=== PATIENT | male | born 1985 | race Caucasian/White ===

== ENCOUNTER 2024-10-22 20:24 | Observation (INO) | payer OTHER, SELFPAY ==
[2024-10-22 20:25] VITALS: BP 181/117; PULSE 99; RESP 18; TEMP 37.2; O2SAT 95; BMI 32.3
--- NOTE | 2024-10-22 21:10 | ED_ITS ---
HPI - Abdominal Pain 2 General: Chief Complaint: Abdominal Pain Stated Complaint: ABD Pain Time Seen by Provider: 10/22/24 20:59 History of Present Illness: 39-year-old male with 3 episodes of sign ificant abdominal pain, epigastric and right upper quadrant, since Wednesday or so. He had another 1 tonight. Pain did not go away despite Rolaids and Mylanta. He was placed on omeprazole on with some transient improvement, but has not seemed to help today. No known fever, although he has not measured. No vomiting currently. No diarrhea. In fact he may be somewhat constipated he says. No urinary symptoms. He states that he had gallbladder problems in the past, but not frequent ones. These episodes are the most frequent he has had. Related Data Home Medications ?Medication ?Instructions ?Recorded ?Confirmed No Known Home Medications 10/22/2409/25 Allergies Allergy/AdvReac Type Severity Reaction Status Date / Time No Known Allergies Allergy Unverified 12/07/22 08:00 [facility] ED 2 PFSH: Surgical History Hx of inguinal hernia repair Right - as a young child Family History Father Hypertension Grandfather CAD (coronary artery disease) A fib and CHF Grandmother Cancer Renal cell carcinoma Social History (Updated 10/22/24 @ 23:54 by Anneliese Soto MD) Smoking and tobacco/nicotine status: never used tobacco/nicotine Alcohol intake: never Substance/Drug Use: former Former substance use details: Marijuana use back in college days. 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 Physical Exam 2 Const: COMMON NORMALS: no acute distress GENERAL APPEARANCE: cooperative; not ill appearing and not frail appearing HENMT: COMMON NORMALS: normocephalic, atraumatic and Normal external nose present HEAD & SCALP: normocephalic and atraumatic FACE & SINUS: normal facial exam and face symmetric NOSE: Normal external nose present Eye: COMMON NORMALS: Equal, round and reactive pupils present and EOMs intact bilaterally PUPIL: Yes Equal, round and reactive pupils present Neck/C-Spine: GENERAL: Yes trachea midline Chest: CHEST: Yes Symmetrical chest wall rise Resp: COMMON NORMALS: normal respiratory effort, No retractions, No use of accessory muscles and clear to auscultation bilaterally AUSCULTATION: clear to auscultation bilaterally Cardio: COMMON NORMALS: regular rate and regular rhythm RATE: regular rate RHYTHM: regular rhythm GI: COMMON NORMALS: Normal to inspection, nondistended, normoactive bowel sounds present and Soft to palpation PALPATION: Yes Soft to palpation and Yes Tenderness to palpation present (GI) (Epigastric) Details: RUQ OTHER: No pain on jump test Extremity: COMMON NORMALS: no pedal edema Neuro: MARQUIS COMA SCALE: document GCS findings [place] coma scale eye opening: Spontaneous Marquis coma scale verbal response: Orientated Marquis coma scale motor response: Obey commands Marquis coma scale total score: 15 S ENSORY EXAM: Yes extremities (intact) Psych: COMMON NORMALS: speech normal SPEECH: Yes normal speech Skin: COMMON NORMALS: no rashes or lesions noted GENERAL SKIN EXAM: no rashes or lesions noted Course 2 Vital Signs: Vital signs: Vital Signs Temperature 98.9 F 10/22/24 20:25 Pulse Rate 67 10/22/24 23:38 Respiratory Rate 16 10/22/24 23:38 Blood Pressure 114/70 10/22/24 23:38 Pulse Oximetry 96 10/22/24 23:38 Oxygen Delivery Me thod Room Air 10/22/24 23:38 MDM - Abdominal Pain Medical Decision Making Significant right upper quadrant and epigastric pain in a patient with prior history of right upper quadrant pain, but episodes have been more frequent this week. He is hypertensive on arrival. He is somewhat short of breath at times, as he says it hurts to take a deep breath. White blood cell count is 11.4. Hemoglobin 15. Platelet count 402. CRP is only 5. Lipase is 42. Liver enzymes are normal. Bilirubin is 0.3. CT and gallbladder ultrasound show findings compatible with early acute cholecystitis, given sludge, stones, and mildly thickened wall. Common bile duct is normal. The patient's sodium is 158. This is concerning. Cause essentially not known at this point. He is given a liter bolus here. Plan is to admit for hyponatremia and a acute cholecystitis. Recheck sodium in the morning. Consult surgery in the morning. Zosyn in the meantime. Patient and hospitalist both agree. Lab Data 10/22/24 21:03 10/22/24 21:03 Labs/Radiology: Radiology Impressions Abdomen/Pelvis CT 10/22/24 21:10 IMPRESSION: 1. Findings raising the question of symptomatic cholelithiasis versus early acute cholecystitis in the proper clinical setting. Consider correlation with biliary labs and right upper quadrant ultrasound. Gallbladder Ultrasound 10/22/24 21:10 IMPRESSION: 1. Findings compatible with early acute cholecystitis in the proper clinical setting. Laboratory Results WBC 11.43 10^3/uL (3.29-11.43) 10/22/24 21:03 RBC 5.48 10^6/uL (3.85-5.65) 10/22/24 21:03 Hgb 15.20 g/dL (11.27-16.99) 10/22/24 21:03 Hct 45.1 % (37-53) 10/22/24 21:03 MCV 82.3 fl (82-101) 10/22/24 21:03 MCH 27.7 pg (27-33) 10/22/24 21:03 MCHC 33.7 g/dL (30-55) 10/22/24 21:03 RDW 12.3 % (12.1-15.1) 10/22/24 21:03 Plt Count 402 10^3/cmm (157-399) H 10/22/24 21:03 MPV 9.7 fL (7.4-10.4) 10/22/24 21:03 Neut % (Auto) 61.0 % 10/22/24 21:03 Lymph % (Auto) 29.8 % 10/22/24 21:03 [place] % (Auto) 7.7 % 10/22/24 21:03 Eos % (Auto) 1.0 % 10/22/24 21:03 Baso % (Auto) 0.3 % 10/22/24 21:03 Neut # (Auto) 6.96 10^3/uL (1.8-7.7) 10/22/24 21:03 Lymph # (Auto) 3.4 10^3/uL (0.8-4.8) 10/22/24 21:03 [place] # (Auto) 0.9 10^3/uL (0.2-0.9) 10/22/24 21:03 Eos # (Auto) 0.1 10^3/uL (0.0-0.8) 10/22/24 21:03 Baso # (Auto) 0.0 10^3/uL (0.0-0.1) 10/22/24 21:03 Nucleated RBC % (auto) 0 % 10/22/24 21:03 Nucleated RBCs # 0.0 /100WBC 10/22/24 21:03 PT 12.60 SECONDS (12.1-14.9) 10/22/24 21:08 INR 0.88 (0.8-1.2) 10/22/24 21:08 APTT 24.0 SECONDS (23.9-36.7) 10/22/24 21:08 Sodium 158 mmol/L (136-145) H 10/22/24 21:03 Potassium 4.6 mmol/L (3.5-5.1) 10/22/24 21:03 Chloride 112 mmol/L (98-107) H 10/22/24 21:03 Carbon Dioxide 27 mmol/L (22-29) 10/22/24 21:03 Anion Gap 23.6 (5-19) H 10/22/24 21:03 BUN 12 mg/dL (6-20) 10/22/24 21:03 Creatinine 0.8 mg/dL (0.7-1.2) 10/22/24 21:03 GFR Calculation 108.8 mL/min (90-130) 10/22/24 21:03 Glucose 145 mg/dL (65-115) H 10/22/24 21:03 Calculated Osmolality 328 mOsm/kg (285-295) H 10/22/24 21:03 Calcium 10.1 mg/dL (8.5-10.5) 10/22/24 21:03 Total Bilirubin 0.3 mg/dL (0.15-1.2) 10/22/24 21:03 AST 19 U/L (0-40) 10/22/24 21:03 ALT 34 U/L (0-41) 10/22/24 21:03 Alkaline Phosphatase 94 U/L (40-130) 10/22/24 21:03 Troponin T Baseline < 6 ng/L (0-15) 10/22/24 21:03 C-Reactive Protein 5.1 mg/L (0.0-4.9) H 10/22/24 21:03 Total Protein 7.7 g/dL (6.6-8.7) 10/22/24 21:03 Albumin 5.3 g/dL (3.5-5.2) H 10/22/24 21:03 Globulin 2.4 g/dL (1.3-4.6) 10/22/24 21:03 Lipase 42 U/L (13-60) 10/22/24 21:03 All radiology interpretation(s) finalized by discharge Discharge Plan Discharge Patient Disposition: Admitted As Inpatient Admit Provider: Anneliese Soto Clinical Impression: Acute hypernatremia, Acute calculous cholecystitis Condition: Stable Coding Level of Care Code ED Environmental Attorney for Fern Quintana
--- NOTE | 2024-10-22 21:10 | CTR_ITS ---
PROCEDURE INFORMATION: Exam: CT Abdomen And Pelvis With Contrast Exam date and time: 10/22/2024 9:29 PM Age: 39 years old Clinical indication: Abdominal pain; Localized; Right upper quadrant (ruq); Prior surgery; Surgery date: 6+ months; Surgery type: umbilical hernia repair; C/O multiple episodes of ruq pain over the last week. TECHNIQUE: Imaging protocol: Computed tomography of the abdomen and pelvis with contrast. Radiation optimization: All CT scans at this facility use at least one of these dose optimization techniques: automated exposure control; mA and/or kV adjustment per patient size (includes targeted exams where dose is matched to clinical indication); or iterative reconstruction. Contrast material: OMNI 350; Contrast volume: 100 ml; Contrast route: INTRAVENOUS (IV); COMPARISON: No relevant prior studies available. RADIATION DOSE METRICS: Total DLP (mGy-cm): 884.7 FINDINGS: Lungs: Subsegmental bibasilar atelectasis. The visualized lung bases are otherwise grossly clear. Diaphragm: No evidence of diaphragmatic defect. Liver: Hepatic steatosis. No evidence of focal hepatic lesion. Gallbladder and biliary ducts: There is cholelithiasis with pericholecystic haziness and trace pericholecystic fluid. No intra-hepatic or extra-hepatic biliary dilatation. Pancreas: Unremarkable. Spleen: Unremarkable. Adrenal glands: Unremarkable. Kidneys and ureters: No renal parenchymal abnormality. No hydronephrosis or ureteral stone. Stomach and bowel: No evidence of bowel obstruction or perienteric inflammatory changes. Appendix: Normal appendix. Intraperitoneal space: No evidence of free air or fluid collection. Vasculature: No aneurysmal dilatation or dissection of the abdominal aorta. The celiac trunk, SMA and CRISPIN are grossly patent. No evidence of IVC thrombus. The portal vein, SMV and splenic veins are grossly patent. Lymph nodes: No adenopathy. Urinary bladder: Grossly unremarkable. Reproductive: Grossly unremarkable. Bones/joints: No evidence of acute fracture or aggressive osseous lesion. Soft tissues: No evidence of fluid collection or hematoma in the superficial soft tissues. CT/CT abdomen pelvis w con* [id number] IMPRESSION: 1. Findings raising the question of symptomatic cholelithiasis versus early acute cholecystitis in the proper clinical setting. Consider correlation with biliary labs and right upper quadrant ultrasound.
--- NOTE | 2024-10-22 21:10 | USR_ITS ---
PROCEDURE INFORMATION: Exam: US Abdomen, Limited; Right Upper Quadrant Exam date and time: 10/22/2024 10:24 PM Age: 39 years old Clinical indication: Abdominal pain; Localized; Right upper quadrant (ruq); Additional info: Ruq pain TECHNIQUE: Imaging protocol: Real time ultrasound of the abdomen with image documentation. Limited exam focused on the right upper quadrant. COMPARISON: CT abdomen pelvis w con* [id number] 10/22/2024 9:29 PM FINDINGS: Liver: Visualized hepatic parenchyma is echogenic. The liver contour is grossly smooth. Gallbladder: There is cholelithiasis with gallbladder wall thickening to 6 mm. Biliary ducts: The CBD is nondilated, measuring 4 mm. No sonographic evidence of intraductal stone. Pancreas: The pancreas is mostly obscured bowel gas. Visualized portions are grossly unremarkable. Right kidney: The right kidney is normal in echotexture and measures 10.5 cm in length. No evidence of hydronephrosis. US/US gall bladder [id number] IMPRESSION: 1. Findings compatible with early acute cholecystitis in the proper clinical setting.
[2024-10-22 21:23] LABS: Basophils % 0.3 %; Eosinophils # 0.1 10^3/uL (0.0-0.8); Hematocrit 45.1 % (37-53); Lymphocytes # 3.4 10^3/uL (0.8-4.8); Lymphocytes % 29.8 %; Mean Corpuscular HGB Conc 33.7 g/dL (30-55); Mean Corpuscular Hemoglobin 27.7 pg (27-33); Mean Corpuscular Volume 82.3 fl (82-101); Mean Platelet Volume 9.7 fL (7.4-10.4); Monocytes # 0.9 10^3/uL (0.2-0.9); Monocytes % 7.7 %; Neutrophils # 6.96 10^3/uL (1.8-7.7); Nucleated Red Blood Cells % 0 %; Platelet Count 402 10^3/cmm (157-399); Red Blood Count 5.48 10^6/uL (3.85-5.65); Red Cell Distribution Width 12.3 % (12.1-15.1); White Blood Count 11.43 10^3/uL (3.29-11.43)
--- NOTE | 2024-10-22 21:23 | ECG_ITS ---
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 Measurements Intervals [place] Rate: 79 P: 52 WV: 160 QRS: 66 QRSD: 80 T: 8 QT: 348 QTc: 400 Interpretive Statements SINUS RHYTHM WITH SINUS ARRHYTHMIA No previous ECG available for comparison Electronically Signed On 10-28-2024 18:39:52 CDT by Forrest Sabillon M.D. [id number]
[2024-10-22 21:31] LABS: Potassium 4.6 mmol/L (3.5-5.1)
[2024-10-22] MEDS: iohexol 350 mg/mL 500 mL Btl (per mL) IV (21:31)
[2024-10-22 21:37] LABS: Troponin(5th) Baseline < 6 ng/L (0-15)
[2024-10-22 21:39] LABS: Chloride 112 mmol/L (98-107); Sodium 158 mmol/L (136-145)
[2024-10-22 21:43] LABS: Alanine Aminotransferase 34 U/L (0-41); Albumin Level 5.3 g/dL (3.5-5.2); Alkaline Phosphatase 94 U/L (40-130); Anion Gap 23.6 (5-19); Aspartate Amino Transferase 19 U/L (0-40); Blood Urea Nitrogen 12 mg/dL (6-20); C Reactive Protein 5.1 mg/L (0.0-4.9); Calcium 10.1 mg/dL (8.5-10.5); Carbon Dioxide 27 mmol/L (22-29); Creatinine Clr Calc Pharmacy 151.3227; Globulin 2.4 g/dL (1.3-4.6); Glomerular Filtration Rate 108.8 mL/min (90-130); Glucose 145 mg/dL (65-115); Lipase 42 U/L (13-60); Osmolality Calculated 328 mOsm/kg (285-295); Total Bilirubin 0.3 mg/dL (0.15-1.2); Total Protein 7.7 g/dL (6.6-8.7)
[2024-10-22] MEDS: lidocaine 2% viscous 15 ML, aluminum-mag hydrox-simethicon 30 ML, sucralfate oral liq 1 GM PO (21:50)
[2024-10-22] MEDS: ondansetron 2 mg/ML SDV 2 mL 4 MG IVP (22:01)
[2024-10-22] MEDS: metoprolol tartrate 1 mg/1 mL SDV 5 mL 5 MG IVP (22:01)
[2024-10-22] MEDS: ketorolac 30 mg/mL INJ IVP (22:01)
[2024-10-22 22:07] VITALS: BP 161/105; PULSE 71; RESP 16; O2SAT 95
[2024-10-22] MEDS: sodium chloride 0.9% 1,000 ML 999 ML IV (22:29)
[2024-10-22 22:41] VITALS: BP 127/77; PULSE 69; RESP 16; O2SAT 96
--- NOTE | 2024-10-22 22:59 | P.HP_ITS ---
Providers/Chief Complaint 2 Admitting Physician: Anneliese Soto Primary Care Provider: Jeremias To MD Chief Complaint: ABD Pain History of Present Illness Patient's was in the room while the patient was being seen. Arie Talley is a 39 year old male with no medical hx, who presents to the ED on 10/22/2024 with complaints of progressively worsening abdominal pain that began on the night of 10/21/2024. The patient states that starting Tuesday 10/17, he started to experience sharp abdominal pains that started about 11:30pm and lasted for 5 hours, such that he did not sleep until 3:30am in the morning. Last night, 10/21, he had experienced the same abdominal pain starting at 11:30pm and did not sleep until 7:30am this morning. Today, he started to experience the abdominal pain around 4pm this afternoon, after eating a cheese burger, and given that he did not know when the abdominal pain would resolve, he decided to present to the hospital. In the last 2 years, he has had gall bladder attacks that were 6 months to a year apart, but this sequence of abdominal pains was unusual. The pain is constant in the epigastric and LUQ and radiated to the back, but intermittent in the RUQ. He took Mylanta and Rolaids with no relief. He endorses nausea, abdominal bloating, 2 days of constipation. He denies f/c, dizziness, lightheadedness, CP, palpitations, SOB, or symptoms. In the ED, his vital signs were significant for a BP of 181/117 mmHg. His labs are significant for WBC of 11.4, hyponatremia of 158, and a negative UA. CT abdomen and pelvis was done that was concerning for cholelithiasis versus early acute cholecystitis. A right upper quadrant ultrasound was ordered that confirmed acute cholecystitis and no choledocholithiasis. He was given a ketorolac 30 mg IVP x 1, metoprolol tartrate 5 mg IVP x 1, Zofran 4 mg IVP x 1, Zosyn 3.375 g x 1, and 1 L NS x 1 prior to admission. Review of Systems 2 Const: Reports: fatigue (due to lack of sleep from the abdominal pain. ) and malaise; Denies: fever(s), chills or change in appetite Eyes: Denies: change in vision ENMT: Denies: odynophagia, ear or mastoid pain, nasal discharge or nasal congestion Card: Denies: chest pain or palpitations Resp: Denies: dyspnea, non-productive cough or wheezing GI: Reports: abdominal pain, nausea, constipation and bloating; Denies: vomiting, diarrhea, hematochezia or melena : Denies: difficulty urinating, dysuria, urinary frequency, urinary urgency or hematuria Musc: Reports: other (no myalgias); Denies: joint pain Skin/Breast: Denies: rash or new lesions Neuro: Denies: dizziness Psych: Denies: anxiety, depression, suicidal ideation or homicidal ideation Endo: Denies: cold intolerance or heat intolerance Lit/Lymph: Denies: easy bruising or easy bleeding All/Imm: Denies: food intolerance Medications/Allergies Home Medications ?Medication ?Instructions ?Recorded ?Confirmed ?Last Taken ?Type No Known Home Medications 10/22/2409/25 Unknown History Allergies Allergy/AdvReac Type Severity Reaction Status Date / Time No Known Allergies Allergy Unverified 12/07/22 08:00 PFSH Acute 2 PFSH: Surgical History Hx of inguinal hernia repair Right - as a young child Family History Father Hypertension Grandfather CAD (coronary artery disease) A fib and CHF Grandmother Cancer Renal cell carcinoma Social History (Updated 10/22/24 @ 23:54 by Anneliese Soto MD) Smoking and tobacco/nicotine status: never used tobacco/nicotine Alcohol intake: never Substance/Drug Use: former Former substance use details: Marijuana use back in college days. 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 Vitals/I&O/Wt Last Vital Signs Temp 98.9 F 10/22/24 20:25 Pulse 69 10/22/24 22:41 Resp 16 10/22/24 22:41 BP 127/77 10/22/24 22:41 Pulse Ox 96 10/22/24 22:41 O2 Del Method Room Air 10/22/24 22:41 10/22/24 10/22/24 10/22/24 06:59 14:59 22:59 Intake Total 0 / 0 Balance 0 / 0 Weight last 48 hrs Weight 102.058 kg Physical Exam 2 Const: GENERAL APPEARANCE: cooperative and comfortable O RIENTATION/CONSCIOUSNESS: Yes awake, Yes oriented to person, Yes oriented to place and Yes oriented to time HENMT: HEAD & SCALP: normocephalic and atraumatic NOSE: Normal external nose present EXTERNAL EAR: Yes external ears normal MOUTH: Normal oral and palatal mucosa present THROAT: posterior oropharynx normal Eye: CONJUNCTIVA: Yes conjunctivae normal PUPIL: Yes Equal, round and reactive pupils present EOM: No EOM abnormal Neck/C-Spine: GENERAL: Yes normal visual inspection and Yes trachea midline THYROID: Thyroid normal CAROTIDS: No bruit CERVICAL SPINE: Yes cervical ROM normal Lymph: OTHER: No cervical or supraclavicular LAD bilaterally. Resp: OTHER: CTAB, w/ no w/r/r Cardio: OTHER: RRR, no m/r/g or clicks. 2+ radial and DP as well as PT pulses GI: OTHER: BS+, Tender to palpation in the RUQ, Positive Garrett's sign. No rebound tenderness, no guarding or hepatosplenomegaly. Extremity: GENERAL: No clubbing, No cyanosis and No edema Neuro: CRANIAL NERVES: Yes CN normal except as noted COORDINATION/BALANCE: tandem gait normal and other SPEECH: speech normal SENSORY EXAM: No sensory level loss detected MOTOR EXAM: 5/5 motor strength present throughout and Normal motor muscle tone present throughout Psych: APPEARANCE: Yes grossly normal ATTITUDE: Yes calm and Yes engaged ACTIVITY/MOTOR BEHAVIOR: Yes appropriate eye contact SPEECH: Yes normal speech MOOD & AFFECT: Yes euthymic mood THOUGHT PROCESS: Normal thought process present THOUGHT CONTENT: Yes Normal thought content present A TTENTION/CONCENTRATION: Yes attention grossly intact MEMORY/COGNITION: Yes memory grossly intact Skin: GENERAL SKIN EXAM: no rashes or lesions noted Data 10/22/24 21:03 10/22/24 21:03 A&P Assessment and plan (1) Acute hypernatremia: (2) Acute calculous cholecystitis: Plan Arie Talley is a 39 year old male with no medical hx, who presents to the ED on 10/22/2024 with complaints of progressively worsening abdominal pain that began on the night of 10/21/2024. #Acute Cholecystitis: -NPO after midnight. Will consult General Surgery in the AM. -Continue Zosyn. Pain control with Dilaudid #Hypernatremia: Unclear reason. - Will start D5W at 100cc/hr and monitor Na levels. DVT ppx: Lovenox CODE STATUS: Full code PDMP PDMP Reviewed: Not Reviewed Attestations 2 Medical Necessity Statement*: The patient needs to be hospitalized for greater than 2 midnights primarily for his hypernatremia and secondarily for his acute cholecystitis requiring surgical intervention. Diagnoses Acute hypernatremia E87.0 Acute calculous cholecystitis K80.00
[2024-10-22 23:07] LABS: INR 0.88 (0.8-1.2)
[2024-10-22 23:13] VITALS: BP 141/90; PULSE 73; RESP 14; O2SAT 95
[2024-10-22] MEDS: piperacillin-tazobactam 3.375 GM in sodium chloride 0.9% (plus) 50 ML IV (23:24)
[2024-10-22 23:38] VITALS: BP 114/70; PULSE 67; RESP 16; O2SAT 96
[2024-10-23] VITALS (10 sets, daily range): BP systolic 115–149; BP diastolic 60–89; PULSE 63–99; RESP 16–19; TEMP 36.5–36.8; O2SAT 96–99; BMI 32.8
[2024-10-23 00:35] LABS: Urine Appearance Clear (CLEAR); Urine Color Yellow (Yellow)
[2024-10-23 00:36] LABS: Bilirubin Urine Neg (Negative); Blood Urine Neg (Negative); Glucose Urine UA Norm (Normal); Ketones Urine Negative (Negative); Leukocyte Esterase Urine Negative (Negative); Nitrate Urine Negative (Negative); Protein Urine Neg (Negative); Urobilinogen Urine Norm (Negative); pH Urine 6.5 (5-7)
[2024-10-23 00:38] LABS: Bacteria Urine None Seen /hpf; RBC Urine 0-2 /hpf (0-2); Squamous Epithelial Cell Urine 0-5 /hpf (0-5); WBC Urine 0-5 /hpf (0-5)
[2024-10-23] MEDS: dextrose 5% 1,000 ML 100 ML IV ×2 (01:37→10:43)
[2024-10-23] MEDS: HYDROmorphone 0.5 MG/0.5 ML INJ IVP ×4 (03:58→17:14)
--- NOTE | 2024-10-23 04:01 | ECG_ITS ---
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
[2024-10-23 05:35] LABS: Troponin 5 6HR Delta 0.00001 ng/L (0-12)
[2024-10-23] MEDS: piperacillin-tazobactam 3.375 GM in sodium chloride 0.9% (plus) 50 ML IV ×3 (06:10→22:58)
[2024-10-23 06:57] LABS: Basophils % 0.4 %; Eosinophils # 0.2 10^3/uL (0.0-0.8); Eosinophils % 1.7 %; Hematocrit 40.6 % (37-53); Lymphocytes # 3.4 10^3/uL (0.8-4.8); Mean Corpuscular HGB Conc 32.8 g/dL (30-55); Mean Corpuscular Hemoglobin 27.5 pg (27-33); Mean Corpuscular Volume 83.9 fl (82-101); Monocytes # 0.8 10^3/uL (0.2-0.9); Monocytes % 7.9 %; Neutrophils % 53.6 %; Nucleated Red Blood Cells % 0 %; Platelet Count 320 10^3/cmm (157-399); Red Blood Count 4.84 10^6/uL (3.85-5.65); Red Cell Distribution Width 12.4 % (12.1-15.1); White Blood Count 9.52 10^3/uL (3.29-11.43)
[2024-10-23 07:16] LABS: Alanine Aminotransferase 28 U/L (0-41); Albumin Level 4.2 g/dL (3.5-5.2); Alkaline Phosphatase 76 U/L (40-130); Aspartate Amino Transferase 21 U/L (0-40); Blood Urea Nitrogen 11 mg/dL (6-20); Calcium 8.8 mg/dL (8.5-10.5); Carbon Dioxide 26 mmol/L (22-29); Chloride 101 mmol/L (98-107); Creatinine Clr Calc Pharmacy 153.2697; Globulin 2.3 g/dL (1.3-4.6); Glomerular Filtration Rate 108.8 mL/min (90-130); Glucose 99 mg/dL (65-115); Osmolality Calculated 285 mOsm/kg (285-295); Sodium 138 mmol/L (136-145); Total Bilirubin 0.4 mg/dL (0.15-1.2); Total Protein 6.5 g/dL (6.6-8.7)
--- NOTE | 2024-10-23 10:05 | P.CONIM_ITS ---
Providers/Reason For Consult 2 Consulting Physician/Specialty*: General Surgery Reason for Consult*: Acute cholecystitis Attending Physician: Anneliese Soto MD Primary Care Provider: Jeremias To MD History of Present Illness History of Present Illness Arie Talley is a 39 year old male who is admitted to the hospital with hyponatremia and possible acute cholecystitis. Patient came with right upper quadrant and epigastric abdominal pain, laboratory workup showed mild elevation in the white count and hyponatremia with a sodium of 158. His CT of the abdomen shows some thickening of the gallbladder no cholecystic fluid, no ultrasound of the gallbladder first shows a stone and gallbladder thickening but no pericholecystic fluid concerning for possible early acute cholecystitis. Patient has been having ongoing pain for about 3 days and before this he has had a sporadic episode for the last 2 years. Review of Systems 2 General: Reports: 10 or more systems reviewed and unremarkable except in HPI and below Medications/Allergies Home Medications ?Medication ?Instructions ?Recorded ?Confirmed ?Last Taken ?Type No Known Home Medications 10/22/2409/25 Unknown History Allergies Allergy/AdvReac Type Severity Reaction Status Date / Time No Known Allergies Allergy Unverified 12/07/22 08:00 Current Medications Generic Name Dose Route Start Last Admin Trade Name Freq PRN Reason Stop Dose Admin Hydromorphone HCl 0.5 mg 10/23/24 03:50 10/23/24 03:58 Hydromorphone 0.5 Mg/0.5 Ml Inj IVP 0.5 mg Q4H PRN Administration MODERATE TO SEVERE PAIN Dextrose 1,000 mls @ 100 mls/hr 10/23/24 01:00 10/23/24 01:37 D5w IV 100 mls/hr .Q10H NEIL Administration Piperacillin Sod/Tazobactam 50 mls @ 12.5 mls/hr 10/23/24 07:00 10/23/24 06:10 Sod 3.375 gm/ Sodium Chloride IV 12.5 mls/hr Q8H NEIL Administration Protocol PFSH Acute 2 PFSH: Surgical History Hx of inguinal hernia repair Right - as a young child Family History Father Hypertension Grandfather CAD (coronary artery disease) A fib and CHF Grandmother Cancer Renal cell carcinoma Social History (Updated 10/22/24 @ 23:54 by Anneliese Soto MD) Smoking and tobacco/nicotine status: never used tobacco/nicotine Alcohol intake: never Substance/Drug Use: former Former substance use details: Marijuana use back in college days. 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 No Garrett sign Data 10/23/24 05:00 10/23/24 05:00 A&P Assessment and plan (1) Acute calculous cholecystitis: Plan After a complete history, physical examination and review of all available clinical data I think patient clinical presentation is consistent with possible early acute cholecystitis after several episodes of biliary colic. I have offered the patient laparoscopic cholecystectomy . All the risk and benefits of the procedure were discussed with the patient including the risks of bleeding, infection, damage to surrounding structures including liver, duodenum, colon, risk of injuring bile ducts requiring extensive surgery at higher level of care facility, risk of retained stones, bile leak, bili Salma, need for subtotal cholecystectomy, hernia and wound related complications, need to conversion to open procedure. Patient shows understanding and would like to proceed. Lap derrick will be booked for next available OR Time PDMP PDMP Reviewed: Not Reviewed Coding Level of Care Code Acute Code for g Fwd Diagnoses Acute calculous cholecystitis K80.00
--- NOTE | 2024-10-23 11:56 | P.PN_ITS ---
Subjective 2 Subjective: Feeling a little more settled this morning, belly pain is somewhat better. Still very tender in the epigastric and right upper quadrant. Bowel sounds are good. Pain is controlled. No more problems with nausea. Medications: Reviewed: Yes Vitals/I&O/Wt Last Vital Signs Temp 97.7 F 10/23/24 07:34 Pulse 77 10/23/24 07:34 Resp 18 10/23/24 07:34 BP 115/74 10/23/24 07:34 Pulse Ox 97 10/23/24 07:34 O2 Del Method Room Air 10/23/24 07:34 10/22/24 10/23/24 10/23/24 22:59 06:59 14:59 Intake Total 0 / 0 1050 / 1050 960 / 960 Balance 0 / 0 1050 / 1050 960 / 960 Weight last 48 hrs Weight 231 lb Weight 229 lb 4 oz Weight 225 lb Physical Exam 2 Narrative: General: Cooperative patient in no apparent distress. Well developed. HEENT: Normocephalic, Atraumatic. External ears normal. Nasal passages patent without drainage. MMM. Heart: RRR. Resp: LCTA. No respiratory distress, no use of accessory muscles. Abd: Soft, epigastric and right upper quadrant tenderness noted. Abdomen is nondistended. Bowel sounds are present and normal. Extremities: No edema. Skin: No rash or lesions on exposed areas. Data 10/23/24 05:00 10/23/24 05:00 A&P Assessment and plan (1) Acute hypernatremia: (2) Acute calculous cholecystitis: Plan Arie Talley is a 39 year old male with no medical hx, who presents to the ED on 10/22/2024 with complaints of progressively worsening abdominal pain that began on the night of 10/21/2024. Continue inpatient monitoring. General surgery is consulted and they have decided to take patient back for surgery this afternoon. Currently on Zosyn. His pain is well-controlled on Dilaudid. He has antiemetics available as needed. Hyponatremia has resolved as of this morning. Sodium is back to normal range. Will continue Lovenox for now for DVT prophylaxis. This may change prior to surgery. Code Status: Full IVF: D5 water, will stop for now. DVT PPx: Lovenox GI PPx: None ABx: Zosyn Diet: N.p.o. Discharge plan: Home when appropriate. PDMP PDMP Reviewed: Not Reviewed Attestations 2 Medical Necessity Statement*: The patient needs to be hospitalized for greater than 2 midnights primarily for his hypernatremia and secondarily for his acute cholecystitis requiring surgical intervention. Coding Level of Care Code Acute Code for Chg Fwd Moderate MDM includes number and complexity of problems actively addressed during encounter, amount and/or complexity of data reviewed/ordered and described risk of complication, morbidity or mortality of management as documented Diagnoses Acute hypernatremia E87.0 Acute calculous cholecystitis K80.00
[2024-10-23] MEDS: sodium chloride 0.9% 1,000 ML 75 ML IV (13:37)
--- NOTE | 2024-10-23 14:52 | PM.MISC ---
Miscellaneous Note Purpose of Documentation: Update on patient care Note: Patient is doing well, no significant abdominal pain. His lap derrick was scheduled for this afternoon but unfortunately due to schedule of nonelective cases for this evening we will not be able to obtain our time today. Since patient clinical symptoms get significantly improved I think it will be okay to wait until tomorrow morning. I discussed with the patient and family member they agree with this we will proceed to the OR tomorrow at 7 AM. We will do a full liquid diet today and n.p.o. after midnight
[2024-10-23] MEDS: ketorolac 30 mg/mL INJ IVP (19:52)
[2024-10-24] VITALS (20 sets, daily range): BP systolic 104–166; BP diastolic 64–109; PULSE 69–98; RESP 16–20; TEMP 36.2–37.1; O2SAT 92–98
[2024-10-24] MEDS: sodium chloride 0.9% 1,000 ML 75 ML IV (02:43)
--- NOTE | 2024-10-24 06:07 | W.PM.OPSUD ---
Surgery/Procedure H&P Update DATE OF PROCEDURE: October 24, 2024 DATE H&P PERFORMED: 10/23/24 H&P UPDATE INFORMATION: I have reviewed H&P completed within last 30 days, I have examined patient prior to procedure, No changes to prior documentation, Changes to prior documentation as noted here and Risks and benefits of the procedure reviewed PLANNED PROCEDURE: Operation Date: 10/24/24 07:00 Proposed Procedures p Laparoscopic Cholecystectomy(Not Applicable) - Dorian Murillo MD
[2024-10-24] MEDS: sodium chloride 0.9% 1,000 ML 30 ML IV (06:26)
[2024-10-24] MEDS: fentaNYL 50 mcg/mL INJ 2mL IVP (06:50)
[2024-10-24 06:51] LABS: Hematocrit 42.3 % (37-53)
--- NOTE | 2024-10-24 06:53 | ANES.PREANE2 ---
Pre-Anesthetic Assessment Height/Weight: Height 1.78 m Weight 104.916 kg Temp Pulse Resp BP Pulse Ox O2 Del Method 98.7 F 89 17 166/109 96 Room Air 10/24/24 06:15 10/24/24 06:15 10/24/24 06:50 10/24/24 06:15 10/24/24 06:50 10/24/24 06:15 Operation Date: 10/24/24 07:00 Proposed Procedures p Laparoscopic Cholecystectomy(Not Applicable) - Dorian Murillo MD Familial anesthetic complications: None Was Beta Magi taken within 24 hours: N/A Was Clonidine taken within 24 hours: N/A Last intake: Intake Last Liquid Date 10/23/24 Last Liquid Time 23:30 Last Solid Date 10/22/24 Social No alcohol and No tobacco Exam alert, oriented x 3, clear to auscultation bilaterally and regular rate & rhythm Airway Dentition: full Anesthetic Plan ASA status: 1 Anesthesia: General Risk of > 500 ml blood loss (7ml/kg in children): No Medications/Allergies Home Medications ?Medication ?Instructions ?Recorded ?Confirmed ?Last Taken ?Type No Known Home Medications 10/22/24 10/22/24 Unknown History Allergies Allergy/AdvReac Type Severity Reaction Status Date / Time No Known Allergies Allergy Unverified 12/07/22 08:00 Current Medications Generic Name Dose Route Start Last Admin Trade Name Dionyq PRN Reason Stop Dose Admin Fentanyl 50 mcg 10/24/24 06:11 10/24/24 06:50 Fentanyl 50 Mcg/Ml Inj 2ml IVP 50 mcg Q10M PRN Administration Preop Pain Hydromorphone HCl 0.5 mg 10/23/24 03:50 10/23/24 17:14 Hydromorphone 0.5 Mg/0.5 Ml Inj IVP 0.5 mg Q4H PRN Administration MODERATE TO SEVERE PAIN Piperacillin Sod/Tazobactam 50 mls @ 12.5 mls/hr 10/23/24 07:00 10/24/24 03:50 Sod 3.375 gm/ Sodium Chloride IV Infused Q8H NEIL Infusion Protocol Sodium Chloride 1,000 mls @ 75 mls/hr 10/23/24 13:30 10/24/24 02:43 Sodium Chloride 0.9% IV 75 mls/hr .[id number] NEIL Administration Sodium Chloride 1,000 mls @ 30 mls/hr 10/24/24 06:15 10/24/24 06:26 Sodium Chloride 0.9% IV 10/25/24 06:14 30 mls/hr .Q24H NEIL Administration Ketorolac Tromethamine 30 mg 10/23/24 13:52 10/23/24 19:52 Ketorolac 30 Mg/Ml Inj IVP 10/28/24 13:51 30 mg Q8H PRN Administration MODERATE PAIN Polyethylene Glycol 17 gm 10/23/24 09:00 10/23/24 10:47 Polyethylene Glycol 3350 Pkt 17 Gm PO Not Given DAILY NELI Senna 17.2 mg 10/23/24 09:00 10/23/24 10:47 Sennosides 8.6 Mg Tablet PO Not Given DAILY NEIL PFSH Anesthesia Surgical History Hx of inguinal hernia repair Right - as a young child Family History Father Hypertension Grandfather CAD (coronary artery disease) A fib and CHF Grandmother Cancer Renal cell carcinoma Social History (Updated 10/22/24 @ 23:54 by Anneliese Soto MD) Smoking and tobacco/nicotine status: never used tobacco/nicotine Alcohol intake: never Substance/Drug Use: former Former substance use details: Marijuana use back in college days. 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 Data Anesthesia 10/24/24 05:58 10/23/24 05:00 Short CBC 10/22/24 10/23/24 10/24/24 Range/Units 21:03 05:00 05:58 WBC 11.43 9.52 (3.29-11.43) 10^3/uL Hgb 15.20 13.30 14.20 (11.27-16.99) g/dL Hct 45.1 40.6 42.3 (37-53) % MCV 82.3 83.9 (82-101) fl Plt Count 402 H 320 (157-399) 10^3/cmm Neut % (Auto) 61.0 53.6 % Neut # (Auto) 6.96 5.10 (1.8-7.7) 10^3/uL BMP 10/22/24 10/23/24 21:03 05:00 Sodium 158 H 138 D Potassium 4.6 4.0 Chloride 112 H 101 Carbon Dioxide 27 26 BUN 12 11 Creatinine 0.8 0.8 Glucose 145 H 99 Calcium 10.1 8.8 Cardiac Enzymes 10/22/24 10/23/24 Range/Units 21:03 05:00 Troponin T Baseline < 6 (0-15) ng/L Troponin T Hi Sens 6Hr 6.00 (0-15) ng/L Troponin T Hi Sens 6Hr Delta 0.76503 (0-12) ng/L Liver Function 10/22/24 10/23/24 Range/Units 21:03 05:00 Total Bilirubin 0.3 0.4 (0.15-1.2) mg/dL AST 19 21 (0-40) U/L ALT 34 28 (0-41) U/L Alkaline Phosphatase 94 76 (40-130) U/L Albumin 5.3 H 4.2 (3.5-5.2) g/dL Urine 10/23/24 Range/Units 00:26 Urine Color Yellow (Yellow) Urine Appearance Clear (CLEAR) Urine pH 6.5 (5-7) Ur Specific [place] 1.010 (1.005-1.030) Urine Protein Neg (Negative) Urine Glucose (UA) Norm (Normal) Urine Ketones Negative (Negative) Urine Nitrate Negative (Negative) Urine Bilirubin Neg (Negative) Ur Leukocyte Esterase Negative (Negative) Urine RBC 0-2 (0-2) /hpf Urine WBC 0-5 (0-5) /hpf Coags 10/22/24 10/22/24 21:03 21:08 PT 12.60 INR 0.88 APTT 24.0 C-Reactive Protein 5.1 H Cardiac Studies: No Data to Display
[2024-10-24 07:00] LABS: INR 0.88 (0.8-1.2)
[2024-10-24 07:01] LABS: Partial Thromboplastin Time 27.5 SECONDS (23.9-36.7)
[2024-10-24 07:09] LABS: Alanine Aminotransferase 88 U/L (0-41); Albumin Level 4.5 g/dL (3.5-5.2); Alkaline Phosphatase 121 U/L (40-130); Anion Gap 16.2 (5-19); Aspartate Amino Transferase 55 U/L (0-40); Blood Urea Nitrogen 10 mg/dL (6-20); Calcium 9.4 mg/dL (8.5-10.5); Carbon Dioxide 26 mmol/L (22-29); Chloride 102 mmol/L (98-107); Globulin 2.3 g/dL (1.3-4.6); Glomerular Filtration Rate 108.8 mL/min (90-130); Glucose 92 mg/dL (65-115); Magnesium 2.4 mg/dL (1.7-2.3); Osmolality Calculated 289 mOsm/kg (285-295); Phosphorus 3.7 mg/dL (2.5-4.5); Potassium 4.2 mmol/L (3.5-5.1); Sodium 140 mmol/L (136-145); Total Bilirubin 0.7 mg/dL (0.15-1.2); Total Protein 6.8 g/dL (6.6-8.7)
[2024-10-24] MEDS: BUPivacaine 0.25% INJ 10 mL INJECTION (07:23)
[2024-10-24] MEDS: lidocaine-epi 1% 20 mL INJ INJECTION (07:23)
--- NOTE | 2024-10-24 09:39 | P.OP_ITS ---
Operative Report Date of procedure: October 24, 2024 Pre-op diagnosis: Acute cholecystitis Post-op diagnosis: Acute cholecystitis Post-op findings: There was severe inflammation on the gallbladder, the gallbladder was severely thickened and distended, require decompression to be able to grab it. There was significant inflammation of the level of the hepatocystic triangle. There was multiple stones impacted into the cystic duct. Procedure done: Laparoscopic cholecystectomy Specimens removed/disposition: Gallbladder Surgeon: Dorian Murillo MD Estimated blood loss: 20 Complications: None apparent Brief History: 39-year-old male who presented to the hospital with abdominal pain, imaging findings consistent with acute cholecystitis. After discussion of all recent benefits we proceeded to the OR for lap derrick Procedure: Patient was brought into the OR, he was placed in a supine position. General anesthesia was given. The abdomen was prepped and draped in the usual sterile fashion. A timeout was conducted. I accessed the abdomen via a 5 mm Optiview port in the left upper quadrant. Initial pneumoperitoneum was obtained and no evidence of visceral injury during entry was noted. At 12 mm trocar was placed in the supraumbilical position under direct visualization. Additional 5 mm trocars were placed in the epigastrium right upper quadrant and right flank under direct visualization. The gallbladder was extremely distended, I decompressed it with decompression needle and remove about 10 cc of thick bile before it could grasped from the fundus and retracted cephalad, I then grasped the infundibulum and retracted in the inferolateral direction exposing the hepatocystic triangle. The peritoneum anterior to the hepatocystic triangle was opened with electrocautery, I carried this opening in the medial and lateral di rection to the edges of the liver and then on the sides of the gallbladder to allow for better exposure. There was severe inflammation of the level of the hepatocystic triangle, there was multiple inflammatory Rinds and dissection was very complex. The cystic artery was anterior to the cystic duct and from that position its branch into a medial and lateral direction. With careful blunt dissection as well as electrocautery I was able to encircle the cystic duct and artery, I also elevated lower third of the gallbladder from the liver bed, thus creating a critical view of safety. The cystic duct and artery were double clipped proximally and single clipped distally and transected. The gallbladder was removed from the liver bed using electrocautery. The gallbladder was retrieved in an Endo Catch bag via the umbilical trocar site. The fascia was dilated and the skin was opened about 0.5 cm more in order to accommodate the size of the gallbladder. the liver bed and clips were inspected the area was hemostatic, there was no evidence of bile leak the clips appeared to be in good position. The liver bed was irrigated and suctioned. The medical trocar was removed and umbilical trocar site was closed with a 0 Vicryl Kris-Anne suture passer under direct visualization. The epigastrium right upper quadrant right flank trocars were removed under direct visualization, the left upper quadrant trocar was used to evacuate the pneumoperitoneum and subsequently removed. Local anesthesia was infiltrated. Hemostasis was achieved from the trocar sites. The wounds were closed in layers using #3-0 Vicryl for the subcutaneous tissue #4 Monocryl for the skin. At the end of the procedure all counts were correct, the patient tolerated well the procedure was transferred to the PACU in stable condition.
--- NOTE | 2024-10-24 10:50 | ANE.PACU2 ---
Inpatient post-anesthesia follow up: Airway intact: Yes Vital signs: Temperature 97.4 F Pulse Rate 77 Respiratory Rate 16 Blood Pressure 162/83 Pulse Oximetry 92 Oxygen Delivery Me thod Nasal Cannula Oxygen Flow Rate 2 Fraction of Inspir ed Oxygen Hydration adequate: Yes Nausea and vomiting: No Pain level: 1 Mental status: Baseline
[2024-10-24] MEDS: HYDROmorphone 0.5 MG/0.5 ML INJ IVP (11:38)
--- NOTE | 2024-10-24 15:05 | P.DS_ITS ---
Discharge Providers Date of Admission: 10/22/24 23:02 Date of Discharge: October 24, 2024 Attending Provider at Admission: Anneliese Soto MD Attending Provider at Discharge: Mirna Alcazar MD Primary Care Provider: Jeremias To MD Diagnoses at Discharge Discharge Diagnosis (1) Acute hypernatremia: Status: Acute (2) Acute calculous cholecystitis: Status: Acute Reason for Visit Reason for Visit: ABD Pain Brief History: Arie Talley is a 39 year old male with no known medical hx, who presented to the ED on 10/22/2024 with complaints of progressively worsening abdominal pain that began on the night of 10/21/2024. He endorsed nausea, abdominal bloating, 2 days of constipation. His labs were significant for WBC of 11.4, hypernatremia of 157, and a negative UA. CT abdomen and pelvis was done that was concerning for cholelithiasis versus early acute cholecystitis. A right upper quadrant ultrasound was ordered that confirmed acute cholecystitis and no choledocholithiasis. He received antibiotic treatment with IV piperacillin tazobactam while in the hospital. He underwent a laparoscopic cholecystectomy earlier today with appropriate ultrasound. Patient started with a clear liquid diet postoperatively. He was noted to be ambulating the hallway. Pain is currently controlled with IV and oral opiates. Sodium corrected during the inpatient stay. Today it is maintained at 140. Patient was noted to have mildly elevated AST and ALT, recommend to repeat in 1 week to ensure downtrend. Patient was cleared to be discharged from a surgery standpoint. He is being discharged with oral Augmentin and oxycodone every 8 as needed for pain management. Physical Exam Narrative: General: No acute distress, AO x3 HEENT: PERRLA, pupils bilaterally equal and reactive, pallors not present Chest: Normal vesicular breath sounds, no added sounds, equal good air entry bilaterally CVS: S1-S2 regular, no murmurs, no tachycardia, no gallops, no rubs Abdomen: Soft, nontender, no organomegaly, bowel sounds present Neuro: No focal deficits, no facial deformity, AO x3, power 5/5 in all limbs Discharge Data Studies Completed and Pending Completed Studies During Hospitalization Category Date Time Status CT abdomen pelvis w con* [id number] Stat Cat Scan 10/22/24 21:10 Completed US gall bladder [id number] Stat Ultrasound 10/22/24 21:10 Completed Pending at discharge Category Date Time Status Comprehensive Metabolic Panel AM LABS Lab 10/25/24 04:00 Ordered Comprehensive Metabolic Panel AM LABS Lab 10/26/24 04:00 Ordered Magnesium AM LABS Lab 10/25/24 04:00 Ordered Magnesium AM LABS Lab 10/26/24 04:00 Ordered Phosphorus AM LABS Lab 10/25/24 04:00 Ordered Phosphorus AM LABS Lab 10/26/24 04:00 Ordered Pathology: Surgical [PTH] Routine Pth 10/24/24 07:39 Received Radiology Impressions Abdomen/Pelvis CT 10/22/24 21:10 IMPRESSION: 1. Findings raising the question of symptomatic cholelithiasis versus early acute cholecystitis in the proper clinical setting. Consider correlation with biliary labs and right upper quadrant ultrasound. Gallbladder Ultrasound 10/22/24 21:10 IMPRESSION: 1. Findings compatible with early acute cholecystitis in the proper clinical setting. Laboratory Results WBC 9.52 10^3/uL (3.29-11.43) 10/23/24 05:00 RBC 4.84 10^6/uL (3.85-5.65) 10/23/24 05:00 Hgb 14.20 g/dL (11.27-16.99) 10/24/24 05:58 Hct 42.3 % (37-53) 10/24/24 05:58 MCV 83.9 fl (82-101) 10/23/24 05:00 MCH 27.5 pg (27-33) 10/23/24 05:00 MCHC 32.8 g/dL (30-55) 10/23/24 05:00 RDW 12.4 % (12.1-15.1) 10/23/24 05:00 Plt Count 320 10^3/cmm (157-399) 10/23/24 05:00 MPV 10.0 fL (7.4-10.4) 10/23/24 05:00 Neut % (Auto) 53.6 % 10/23/24 05:00 Lymph % (Auto) 36.0 % 10/23/24 05:00 [place] % (Auto) 7.9 % 10/23/24 05:00 Eos % (Auto) 1.7 % 10/23/24 05:00 Baso % (Auto) 0.4 % 10/23/24 05:00 Neut # (Auto) 5.10 10^3/uL (1.8-7.7) 10/23/24 05:00 Lymph # (Auto) 3.4 10^3/uL (0.8-4.8) 10/23/24 05:00 [place] # (Auto) 0.8 10^3/uL (0.2-0.9) 10/23/24 05:00 Eos # (Auto) 0.2 10^3/uL (0.0-0.8) 10/23/24 05:00 Baso # (Auto) 0.0 10^3/uL (0.0-0.1) 10/23/24 05:00 Nucleated RBC % (auto) 0 % 10/23/24 05:00 Nucleated RBCs # 0.0 /100WBC 10/23/24 05:00 PT 12.60 SECONDS (12.1-14.9) 10/24/24 05:58 INR 0.88 (0.8-1.2) 10/24/24 05:58 APTT 27.5 SECONDS (23.9-36.7) 10/24/24 05:58 Sodium 140 mmol/L (136-145) 10/24/24 05:58 Potassium 4.2 mmol/L (3.5-5.1) 10/24/24 05:58 Chloride 102 mmol/L (98-107) 10/24/24 05:58 Carbon Dioxide 26 mmol/L (22-29) 10/24/24 05:58 Anion Gap 16.2 (5-19) 10/24/24 05:58 BUN 10 mg/dL (6-20) 10/24/24 05:58 Creatinine 0.8 mg/dL (0.7-1.2) 10/24/24 05:58 GFR Calculation 108.8 mL/min (90-130) 10/24/24 05:58 Glucose 92 mg/dL (65-115) 10/24/24 05:58 Calculated Osmolality 289 mOsm/kg (285-295) 10/24/24 05:58 Calcium 9.4 mg/dL (8.5-10.5) 10/24/24 05:58 Phosphorus 3.7 mg/dL (2.5-4.5) 10/24/24 05:58 Magnesium 2.4 mg/dL (1.7-2.3) H 10/24/24 05:58 Total Bilirubin 0.7 mg/dL (0.15-1.2) 10/24/24 05:58 AST 55 U/L (0-40) H 10/24/24 05:58 ALT 88 U/L (0-41) H 10/24/24 05:58 Alkaline Phosphatase 121 U/L (40-130) 10/24/24 05:58 Troponin T Baseline < 6 ng/L (0-15) 10/22/24 21:03 Troponin T Hi Sens 6Hr 6.00 ng/L (0-15) 10/23/24 05:00 Troponin T Hi Sens 6Hr Delta 0.24118 ng/L (0-12) 10/23/24 05:00 C-Reactive Protein 5.1 mg/L (0.0-4.9) H 10/22/24 21:03 Total Protein 6.8 g/dL (6.6-8.7) 10/24/24 05:58 Albumin 4.5 g/dL (3.5-5.2) 10/24/24 05:58 Globulin 2.3 g/dL (1.3-4.6) 10/24/24 05:58 Lipase 42 U/L (13-60) 10/22/24 21:03 Urine Color Yellow (Yellow) 10/23/24 00:26 Urine Appearance Clear (CLEAR) 10/23/24 00:26 Urine pH 6.5 (5-7) 10/23/24 00:26 Ur Specific [place] 1.010 (1.005-1.030) 10/23/24 00:26 Urine Protein Neg (Negative) 10/23/24 00:26 Urine Glucose (UA) Norm (Normal) 10/23/24 00:26 Urine Ketones Negative (Negative) 10/23/24 00:26 Urine Blood Neg (Negative) 10/23/24 00:26 Urine Nitrate Negative (Negative) 10/23/24 00:26 Urine Bilirubin Neg (Negative) 10/23/24 00:26 Urine Urobilinogen Norm mg/dL (Negative) 10/23/24 00:26 Ur Leukocyte Esterase Negative (Negative) 10/23/24 00:26 Urine RBC 0-2 /hpf (0-2) 10/23/24 00:26 Urine WBC 0-5 /hpf (0-5) 10/23/24 00:26 Ur Squamous Epith Cells 0-5 /hpf (0-5) 10/23/24 00:26 Amorphous Sediment Not Reportable 10/23/24 00:26 Urine Bacteria None seen /hpf (NONE) 10/23/24 00:26 Hyaline Casts 0.40 /lpf 10/23/24 00:26 Vitals Last Vital Signs Temp 97.4 F L 10/24/24 11:10 Pulse 77 10/24/24 11:10 Resp 16 10/24/24 11:10 BP 162/83 10/24/24 11:10 Pulse Ox 92 10/24/24 11:10 O2 Del Method Nasal Cannula 10/24/24 11:10 O2 Flow Rate 2 10/24/24 11:10 Discharge Plan Discharge Patient Disposition: Home Condition: Stable Prescriptions: New polyethylene glycol 3350 [Miralax] 17 gram powder in packet 17 g PO DAILY 7 Days Qty: 7 0RF amoxicillin-pot clavulanate 875-125 mg tablet 1 tab PO BID 5 Days Qty: 10 0RF oxycodone 5 mg tablet 5 mg PO Q8H PRN (Reason: pain) 5 Days Qty: 14 0RF Discharge Orders: Discharge Order (Routine); Ordered 10/24/24 Ordered By: Mirna Alcazar Referrals: Dorian Murillo MD [Physician] - 11/14/24 8:55 am (2 weeks) Jeremias To MD [Primary Care Provider] - 10/31/24 9:00 am Discharge Diet: Advance as tolerated Discharge Activity: Limit activity as instructed Patient Instructions: Amoxicillin/Clavulanate Potassium (By mouth), Oxycodone, Rapid Release (By mouth), Polyethylene Glycol 3350 (By mouth), Acute Wound Care (DC), Laparoscopic Cholecystectomy (GEN), Opioid Safety, Post Anesthesia Care Activity Restrictions/Additional Instructions: Do not lift anything heavier than 15 pounds over the next 4 to 6 weeks. Walk is much as possible this will speed up your recovery. Return to the hospital you have severe abdominal pain that is getting worse over time, fever, chills or yellowing of your eyes and the skin. You can shower starting the day after tomorrow. If you take an opioid for pain please take a stool softener to prevent constipation. Discharge Attestations Time Spent in Discharge Care*: greater than 30 min Quality Metrics Clinical Quality Measures [ No reported AMI, CVA or VTE this stay] Coding Level of Care Code Acute Code for Chg Fwd Diagnoses Acute hypernatremia E87.0 Acute calculous cholecystitis K80.00
[2024-10-24] MEDS: oxyCODONE 5 mg IR Tab/Cap PO (15:27)
== END 2024-10-24 17:29 | disposition home or self-care (01) ==
LOC: ER 23:17 → MEDSURG 23:57 → ER IP 10-23 11:36
PROVIDERS: Emergency Medicine; Surgery; Admitting Provider Internal Medicine; Emergency Provider Emergency Medicine; PCP Family Medicine; Visit Provider Student in an Organized Health Care Education/Training Program
PROC: 0FT44ZZ Resection of Gallbladder, Percutaneous Endoscopic Approach (ICD-10-PCS; CPT 47562; principal; 2024-10-24 07:00)
DX: K80.10 Calculus of gallbladder with chronic cholecystitis without obstruction (principal); E87.0 Hyperosmolality and hypernatremia
CPT/HCPCS: 47562; 36415; 74177; 76705; 80053; 81001; 83690; 83735; 84100; 84484; 85014; 85018; 85025; 85610; 85730; 86140; 88304; 93005; 96365; 96366; 96375; 96376; 99285; A4216; G0378; J1100; J1171; J1885; J2250; J2405; J2543; J2704; J3010; J3490; J7030; J7070; J9999

== ENCOUNTER → 2024-10-31 10:40 | Outpatient (BNVA) | payer OTHER, SELFPAY | PROVIDERS: PCP Family Medicine; Visit Provider Family Medicine | DX: Z51.81 Encounter for therapeutic drug level monitoring (principal) | CPT/HCPCS: 80053 ==